=== PATIENT | female | born 1985 | race Caucasian/White ===

== ENCOUNTER 2016-11-19 14:49 | Emergency (ER) | payer OTHER ==
[~2016-11-19] VITALS: Ht 165.1 cm; Wt 68.0 kg
[2016-11-19 14:49] VITALS: BP 111/69
[2016-11-19] MEDS ORDERED: BENADRYL25 MG PO (15:24)
[2016-11-19] MEDS ORDERED: PREDNISONE 20 M20 MG PO (15:24)
== END 2016-11-19 15:30 | disposition home or self-care (01) ==
LOC: ER 14:49
DX: L23.9 Allergic contact dermatitis, unspecified cause (principal); Z90.89 Acquired absence of other organs

== ENCOUNTER 2018-02-27 02:58 | Emergency (ER) | payer OTHER ==
[~2018-02-27] VITALS: Ht 165.1 cm; Wt 68.0 kg
[~2018-02-27 02:58] MED LIST: BENADRYL25 MG PO; PREDNISONE 20 M20 MG PO
[2018-02-27 03:04] VITALS: BP 125/75
== END 2018-02-27 03:34 | disposition home or self-care (01) ==
LOC: ER 02:58
DX: L02.213 Cutaneous abscess of chest wall (principal)

== ENCOUNTER 2018-03-06 00:51 | Emergency (ER) | payer OTHER ==
[~2018-03-06] VITALS: Ht 165.1 cm; Wt 68.0 kg
[2018-03-06 01:48] LABS: HEMOGLOBIN 11.8 gm/dL (12.0-15.0); PLATELET COUNT 199 thou/uL (150-400); WBC 3.5 thou/uL (4.0-11.0)
[2018-03-06 01:50] LABS: HEMATOCRIT 34.9 % (37.0-47.0); MCV 88.3 fL (80.0-100.0); RBC 3.95 mil/uL (4.20-5.00); RDW 12.9 % (10.5-14.5)
[2018-03-06 01:55] LABS: ANION GAP 8 mmol/L (7-16); BUN 12 mg/dL (7-18); CALCIUM 8.4 mg/dL (8.5-10.1); CHLORIDE 103 mmol/L (98-107); CO2 27 mmol/L (21-32); CREATININE 0.8 mg/dL (0.6-1.0); GLUCOSE 95 mg/dL (74-106); POTASSIUM 3.9 mmol/L (3.5-5.1); SODIUM 138 mmol/L (136-145)
[2018-03-06 02:01] LABS: ALBUMIN 2.7 g/dL (3.4-5.0); DIRECT BILIRUBIN < 0.1 mg/dL (<0.1-0.3); LIPASE 123 U/L (73-393); SGOT 31 U/L (15-37); SGPT 48 U/L (30-65); TOTAL BILIRUBIN 0.2 mg/dL (<0.1-1.0); TOTAL PROTEIN 6.1 g/dL (6.4-8.2)
[2018-03-06 02:16] LABS: ABSOLUTE NEUTROPHILS 1.7 thou/uL (1.4-8.2)
[2018-03-06 02:17] LABS: LARGE PLATELETS RARE; PLATELET ESTIMATE NORMAL
[2018-03-06 02:37] LABS: URINE BILIRUBIN NEGATIVE (Negative); URINE BLOOD 3+ (Negative); URINE CLARITY CLEAR; URINE COLOR YELLOW; URINE GLUCOSE-RANDOM* NEGATIVE (Negative); URINE KETONES NEGATIVE (Negative); URINE LEUKOCYTES-REFLEX 1+ (Negative); URINE NITRITE-REFLEX NEGATIVE (Negative); URINE PROTEIN (DIPSTICK) NEGATIVE (Negative); URINE SPECIFIC GRAVITY 1.025 (1.005-1.035)
[2018-03-06 02:45] LABS: BACTERIA-REFLEX 1-9 Few /HPF (None Seen); CASTS None Seen /LPF (None Seen); CRYSTALS None Seen /LPF (None Seen); MUCUS >6 Heavy strn/LPF (None Seen); SQUAMOUS >10 Many /LPF (0-3); URINE RBC 3-10 Few /HPF (0-2); URINE WBC-REFLEX 0-5 Rare /HPF (0-5)
[2018-03-06] MEDS ORDERED: MUCINEX D TABL1 EAC1 PO (03:12)
[2018-03-06] MEDS ORDERED: ZOFRAN4 MG PO (03:12)
[2018-03-06 03:28] VITALS: BP 86/44
== END 2018-03-06 03:30 | disposition home or self-care (01) ==
LOC: ER 00:51
PROVIDERS: Student in an Organized Health Care Education/Training Program
DX: R11.2 Nausea with vomiting, unspecified (principal)